=== PATIENT | male | born 1980 | race Two or more races ===

== ENCOUNTER 2020-06-15 13:05 | Emergency (ER) | payer OTHER ==
[~2020-06-15] VITALS: Ht 172.7 cm; Wt 99.8 kg
[2020-06-15 13:11] VITALS: BP 126/72
--- NOTE | 2020-06-15 13:11 | NUR ---
ED Nurse Note: Pt walked in to ED c/o swelling/ pain to right hand x yesterday. Per pt, he hit a hard object realloy hard. AAOx4, verbally responsive. No SOB. VSS.
--- NOTE | 2020-06-15 13:45 | NUR ---
ED Nurse Note: Xray at bedside.
--- NOTE | 2020-06-15 13:58 | Emergency Room Report ---
History of Present Illness General Chief Complaint: Upper Extremity Injury Source: Patient Present Illness HPI 39 YO male presents to the ED c/o 03/14 in severity pain, swelling, tenderness, and bruising to the Right hand since yesterday. Pt. reports working on his car with a wrench when it slipped and he hit his hand into the engine block. Pt. denies paresthesias. He reports pain with attempt to make a fist. Pt. reports being right hand dominant. Denies bleeding or open wounds. Pt. denies any other symptoms at this time. He reports he has not taken any OTC medications. Allergies: Coded Allergies: No Known Allergies (Unverified , 06/15/20) COVID-19 Screening Contact w/high risk pt: No Experienced COVID-19 symptoms?: No COVID-19 Testing performed CONTAINER FINISHER: No Patient History Past Medical History: see triage record Past Surgical History: none Pertinent Family History: none Reviewed Nursing Documentation: PMH: Agreed; PSxH: Agreed Nursing Documentation-PMH Past Medical History: No Stated History Review of Systems All Other Systems: negative except mentioned in HPI Physical Exam Vital Signs Date Time Temp Pulse Resp B/P (MAP) Pulse Ox O2 Delivery O2 Flow Rate FiO2 06/15/20 13:07 98.4 69 19 126/72 (90) 98 Room Air Sp02 EP Interpretation: reviewed, normal General Appearance: no apparent distress, alert, GCS 15, non-toxic Head: normocephalic, atraumatic Eyes: bilateral eye normal inspection, bilateral eye PERRL ENT: hearing grossly normal, normal voice Neck: full range of motion Respiratory: chest non-tender, lungs clear, normal breath sounds, speaking full sentences Cardiovascular #1: regular rate, rhythm Gastrointestinal: non tender, soft Musculoskeletal: back normal, normal range of motion, gait/station normal, tender - Right hand, swelling - right hand, other - bruising right hand. Neurologic: alert, motor strength/tone normal, oriented x3, sensory intact, responsive, speech normal Psychiatric: judgement/insight normal Skin: Ecchymosis/Bruising - right hand Medical Decision Making PA Attestation Dr. Carrillo is my supervising Physician whom patient management has been discussed with. Diagnostic Impression: Primary Impression: Closed boxer's fracture Qualified Codes: S62.339A - Displaced fracture of neck of unspecified metacarpal bone, initial encounter for closed fracture ER Course 39 YO male presents to the ED c/o 03/14 in severity pain, swelling, tenderness, and bruising to the Right hand since yesterday. Pt. reports working on his car with a wrench when it slipped and he hit his hand into the engine block. Pt. denies paresthesias. He reports pain with attempt to make a fist. Pt. reports being right hand dominant. Denies bleeding or open wounds. Pt. denies any other symptoms at this time. He reports he has not taken any OTC medications. Ddx considered but are not limited to Fracture, dislocation, contusion,Sprain/Strain/Spasm, Vital signs: are WNL, pt. is afebrile H&PE are most consistent with musculoskeletal injury will perform imaging to r/o fractures/dislocations. ORDERS: - X-ray Right Hand 3 views - 4th metacarpal fx, mildly displaced. ED INTERVENTIONS: - 600mg IBU PO -- Ulnar Gutter Splint applied to the Right hand by electroencephalographic technician. Pt. remains neurovascularly intact. -I do not identify an emergent condition at this time. With current presentation, pt. is stable for close outpatient follow up and conservative treatment. D/w pt. to return promptly to ED with worsening or new symptoms.- Pt. verbalizes' understanding and agreement with proposed treatment plan. DISCHARGE: At this time pt. is stable for d/c to home. Will provide printed patient care instructions, and any necessary prescriptions. Care plan and follow up instructions have been discussed with the patient prior to discharge. Other X-Ray Diagnostic Results Other X-Ray Diagnostic Results : X-Ray ordered: Right Hand 3 views # of Views/Limited Vs Complete: 3 View Indication: Pain EP Interpretation: Yes CARA Xray: Interpretation reviewed, by supervising MD, and agrees with findings. Interpretation: no dislocation, other - Fx of the distal 4th metacarpal. mild displacement. Impression: Other - abnormal Electronically Signed by: Cynthia Rausch PA-C Last Vital Signs Date Time Temp Pulse Resp B/P (MAP) Pulse Ox O2 Delivery O2 Flow Rate FiO2 06/15/20 13:11 98.4 69 19 126/72 98 Room Air Status: improved Disposition: HOME, SELF-CARE Condition: Stable Scripts Ibuprofen* (MOTRIN*) 600 Mg Tablet 600 MG ORAL THREE TIMES A DAY, #20 TAB Prov: Cynthia Rausch 06/15/20 Hydrocodone Bit/Acetaminophen 5-325* (NORCO 5-325 TABLET*) 1 Each Tablet 1 TAB ORAL Q6H PRN for FOR PAIN, #12 TAB 0 Refills Prov: Cynthia Rausch 06/15/20 Referrals: BEE GOMEZ M.D. (PCP) [facility] Departure Forms: Return to Work Return to Work Date: Jun 20, 2020 Other Restrictions: Limited use of right hand. Return to Full Activity: Jun 29, 2020 Work Restrictions: No Heavy Lifting, No Prolonged Standing Patient Instructions: Boxer's Fracture Additional Instructions: Take medications as directed. Follow up with an ORTHOPEDIC HAND SPECIALIST in 3-5 days, even if your symptoms have resolved. --Please review list of primary care clinics, if you do not already have a primary care provider who can give you an Orthopedic Referral. Return sooner to ED if new symptoms occur, or current symptoms become worse. Do not drink alcohol, drive, or operate heavy machinery while taking Macy as this may cause drowsiness. - Please note that this Emergency Department Report was dictated using [employer] hand striper technology software, occasionally this can lead to erroneous entry secondary to interpretation by the dictation equipment. Cynthia Rausch Jun 15, 2020 13:58
--- NOTE | 2020-06-15 14:10 | Diagnostic Imaging Report ---
Indication: Hand pain status post injury Technique: 4 views of the right hand Comparison: None Findings: Bony mineralization is within normal limits. There is an acute slightly comminuted fracture of the fourth distal metacarpal with fracture line extending to involve the metacarpal head and the articular surface. No associated dislocation. There is overlying soft tissue swelling. No radiopaque foreign body. IMPRESSION: Acute fracture of the fourth metacarpal
[2020-06-15] MEDS ORDERED: NORCO 5-325 TA1 EAC1 ORAL (14:52)
[2020-06-15] MEDS ORDERED: IBUPROFEN600 M1 ORAL (14:53)
[2020-06-15 15:06] VITALS: BP 120/71
--- NOTE | 2020-06-15 15:06 | NUR ---
ED Nurse Note: Pt cleared by ERMD for discharge. DC instructions/prescription was given and explained to pt and verbalized understanding of teachings. All medical deviecs such as ID band removed. Pt is AAO x4, ambulatory and left with all personal belongings.
== END 2020-06-15 15:06 | disposition home or self-care (01) ==
LOC: EMR 13:38
DX: S62.339A Displaced fracture of neck of unspecified metacarpal bone, initial encounter for closed fracture (principal); W22.8XXA Striking against or struck by other objects, initial encounter; Y93.89 Activity, other specified; Y92.9 Unspecified place or not applicable
CPT/HCPCS: 29125; 99283